=== PATIENT | female | born 1980 | race Hispanic/Latino ===

== ENCOUNTER 2017-06-29 07:44 | Inpatient (IN) | payer OTHER ==
[2017-06-29] MEDS ORDERED: Lactated Ringer's 1,000 ML IV ONE (07:45)
[2017-06-29 07:48] VITALS: BMI 36.6
[2017-06-29] MEDS: Lactated Ringer's 1,000 ML IV SCH ×2 (08:00→14:41)
[2017-06-29 08:29] VITALS: O2SAT 100
[2017-06-29 09:29] LABS: BASO % 0.3 % (0.0-2.0); EOS # 0.1 K/uL (0.0-0.7); EOS % 1.3 % (0.0-4.0); HEMATOCRIT 33.7 % (34.0-47.0); LYMPH # 2.2 K/uL (1.0-4.3); LYMPH % 32.5 % (20.0-40.0); MEAN CELL VOLUME 88.3 fl (81.0-99.0); MEAN CORPUSCULAR HEMOGLOBIN 29.3 pg (27.0-31.0); MEAN CORPUSCULAR HGB CONC 33.2 g/dL (33.0-37.0); MEAN PLATELET VOLUME 10.7 fl (7.2-11.7); MONO # 0.5 K/uL (0.0-0.8); MONO % 7.8 % (0.0-10.0); NEUT % 58.1 % (50.0-75.0); NRBC % 0.1 % (0.0-0.0); RED CELL DISTRIBUTION WIDTH 13.9 % (11.5-14.5); WHITE BLOOD COUNT 6.8 K/uL (4.8-10.8)
[2017-06-29] MEDS ORDERED: cefOXitin 2 GM in Sodium Chloride 0.9% 100 ML IVPB ONE (11:11)
[2017-06-29] MEDS ORDERED: Oxytocin 30 units/LR 500ML 30 U/500 ML BAG IV ONE ×2 (12:58→13:39)
[2017-06-29] MEDS ORDERED: Morphine 5 mg/10 ml preservative-free Inj(Duramorph) ONE (13:01)
[2017-06-29] MEDS ORDERED: ePHEDrine 50 mg/ml Inj ONE (13:01)
[2017-06-29] MEDS ORDERED: Oxycodone/Acetaminophen 5/325 mg Tab PO PRN ×3 (14:31→16:35)
[2017-06-29] MEDS ORDERED: Bisacodyl 5mg EC Tab PO PRN ×2 (14:31→16:35)
--- NOTE | 2017-06-29 14:31 | OBADHP ---
Datetime: 06/29/2017 14:19 IP Adm Impression Other: patient request due fact that she will transfer hiv-2 to baby Admit Comment, IP Provider: iupat 38+ weeks iugr multiparity patient anxiety of transferring hsv-2 t o baby Pelvic Type - PN: Adequate Extremities - PN: Normal Abdomen - PN: Normal Back - PN: Normal Breast - PN: Normal Lungs - PN: Normal Heart - PN: Normal Thyroid - PN: Normal Neurologic - PN: Normal HEENT - PN: Normal General - PN: Normal Presentation-Admit: Vertex FHR - Baseline A Provider: 120 Gestation - Est Wks by US: 38+ IP Chief Complaint: Uterine contractions NICHD Variability Prov Fetus A: Moderate 6-25bpm NICHD Accel Fetus A IP Provider: 10X10 FHR Category Provider Fetus A: Category I NICHD Decel Fetus A IP Provider: None Genitourinary Exam: Normal DTRs - PN: Normal EGA AdmitDate IP: 38.3 IP Adm Impression: Term, intrauterine ; No Active Labor IP Admit Plan: Admit to unit; Initiate labor induction protocol
--- NOTE | 2017-06-29 14:32 | OBDS ---
DELIVERY PERSONNEL Delivery Doctor: Anurag Coleman MD Research Assistant: Aspen Bradshaw RN Anesthesiologist: Carmelo Francis MD MATERNAL INFORMATION Delivery Anesthesia: Spinal Medications in Delivery: 20 units pitocin in 1000 ml lr Estimated Blood Loss (ml): 800ml Maternal Complications: None Provider Comments: delivery of live baby boy 9/9 clear fluid cord with 3 vessels pklacenta int ac t tubes and ovaries LABOR SUMMARY EDC: 07/10/2017 00:00 No. 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 Secondary Indication: N/A CSection Urgency: Non Elective CSection Incidence: Primary Labor: No Labor Elective: Nonelective CSection Incision: Lower Uterine Transverse Sterilization Procedure: [place] BABY A INFORMATION Delivery Date/Time: 06/29/2017 13:39 Method of Delivery: Born in Route : No : N/A Forceps: N/A Vacuum Extraction: N/A Shoulder Dystocia : No SHOULDER DYSTOCIA BABY A Delivery Date/Time: 06/29/2017 13:39 PRESENTATION/POSITION BABY A Presentation: Cephalic Cephalic Presentation: Vertex Vertex Position: Left Occipital Anterior Breech Presentation: N/A PLACENTA INFORMATION BABY A Placenta Delivery Time : 06/29/2017 13:40 Placenta Method of Delivery: Manual Removal Placenta Status: Delivered SCORES BABY A Heart Rate 1 min: >100 bpm Resp Effort 1 min: Good Cry Reflex Irritability 1 min: Cough or Sneeze or Pulls Away Muscle Tone 1 min: Active Motion Color 1 min: Body [place], Extremities Blue SCORE 1 MIN: 9 Heart Rate 5 min: >100 bpm Resp Effort 5 min: Good Cry Reflex Irritability 5 min: Cough or Sneeze or Pulls Away Muscle Tone 5 min: Active Motion Color 5 min: Body [place], Extremities Blue SCORE 5 MIN: 9 INFANT INFORMATION BABY A Gestational Age at Delivery: 38.3 Gestational Status: Term Outcome : Liveborn Condition : Stable Sex: Male IDENTIFICATION/MEDS BABY A ID Band Number: [id number] ID Band Location: Left Leg; Left Arm WEIGHT/LENGTH BABY A Infant Birthweight (gms): 3650 Weight (lb): 8 Infant Weight (oz): 1 CORD INFORMATION BABY A No. Cord Vessels: 3 Nuchal Cord : N/A Cord Blood Taken: Yes Suction: Mouth; Nose ASSESSMENT BABY A Complications: None Physical Findings at Delivery: Within Normal Limits Respirations: Appears Normal De Icer Kit Assembler/ALS Called : No Infant Care By: DR Rhodes Transferred To: [facility]
[2017-06-29] MEDS ORDERED: DiphenhydrAMINE 50 mg/ml Inj IVP PRN ×2 (15:07→16:35)
[2017-06-30] MEDS: Lactated Ringer's 1,000 ML IV SCH ×2 (00:16→08:31)
[2017-06-30 08:51] LABS: BASO % 0.1 % (0.0-2.0); EOS # 0.1 K/uL (0.0-0.7); EOS % 0.6 % (0.0-4.0); HEMATOCRIT 34.8 % (34.0-47.0); LYMPH # 1.6 K/uL (1.0-4.3); LYMPH % 16.5 % (20.0-40.0); MEAN CORPUSCULAR HEMOGLOBIN 29.6 pg (27.0-31.0); MEAN CORPUSCULAR HGB CONC 33.3 g/dL (33.0-37.0); MONO # 1.1 K/uL (0.0-0.8); NEUT % 71.8 % (50.0-75.0); NRBC % 0.1 % (0.0-0.0); RED CELL DISTRIBUTION WIDTH 14.1 % (11.5-14.5); WHITE BLOOD COUNT 9.8 K/uL (4.8-10.8)
--- NOTE | 2017-06-30 12:05 | OBPPN ---
Datetime: 06/30/2017 11:59 PP Pain Prov: Within normal limits PP Nausea Prov: Denies PP Flatus Prov: Yes PP BM Prov: No PP Breasts Prov: Normal PP Heart Prov: Normal PP Lungs Prov: Normal PP Abdomen/Uterus Prov: Normal PP Lochia Prov: Normal PP Vulva/Perineum Prov: Normal PP CVA Tenderness Prov: Normal PP Extremities Prov: Normal PP C/S Incision Prov: Normal PP Progress Prov: Normal PP Impression Prov: Normal progression PP Plan Prov: Continue present management PP Progress Note Prov: stable pod1 continue present care dc schwab oob with assistance advance diet a s tolerated dc dressing IP PP Procedures: None Vital Signs Provider PP: Reviewed; Within Normal Limits
[2017-06-30] MEDS: Oxycodone/Acetaminophen 5/325 mg Tab PO PRN ×2 (15:11→21:49)
[2017-07-01] MEDS: Oxycodone/Acetaminophen 5/325 mg Tab PO PRN ×4 (06:43→22:00)
--- NOTE | 2017-07-01 12:03 | OBPPN ---
Datetime: 07/01/2017 11:59 PP Pain Prov: Within normal limits PP Pain Prov comment: No SOB, chest pains or leg pains PP Nausea Prov: Denies PP Flatus Prov: Yes PP BM Prov: No PP Breasts Prov: Normal PP Lungs Prov: Normal PP Abdomen/Uterus Prov: Abnormal PP Lochia Prov: Normal PP Vulva/Perineum Prov: Normal PP CVA Tenderness Prov: Normal PP Extremities Prov: Normal PP C/S Incision Prov: Normal PP Progress Prov: Not Applicable PP Comments Phys Exam Prov: Abd soft ND, fundus firm below the umb. Incision clean and dry no suppt or discharge. Ext no calf tenderness PP Impression Prov: Normal progression PP Plan Prov: Continue present management PP Progress Note Prov: will repeat CBC and jasso;ual plattelet count Start Dulcolax this pm OOB and a mbulation Vital Signs Provider PP: Reviewed
[2017-07-01 13:24] LABS: HEMATOCRIT 30.3 % (34.0-47.0); MEAN CELL VOLUME 88.6 fl (81.0-99.0); MEAN CORPUSCULAR HEMOGLOBIN 29.2 pg (27.0-31.0); RED CELL DISTRIBUTION WIDTH 14.1 % (11.5-14.5); WHITE BLOOD COUNT 9.4 K/uL (4.8-10.8)
[2017-07-02] MEDS ORDERED: Magnesium Hydroxide Susp 30 ml UD PO ONE (07:59)
--- NOTE | 2017-07-02 08:17 | OBPPN ---
Datetime: 07/02/2017 08:15 PP Pain Prov: Within normal limits PP Nausea Prov: Denies PP Flatus Prov: Yes PP BM Prov: No PP Breasts Prov: Normal PP Heart Prov: Normal PP Lungs Prov: Normal PP Abdomen/Uterus Prov: Normal PP Lochia Prov: Normal PP Vulva/Perineum Prov: Normal PP CVA Tenderness Prov: Normal PP Extremities Prov: Normal PP C/S Incision Prov: Normal PP Progress Prov: Normal PP Impression Prov: Normal progression PP Plan Prov: Continue present management PP Progress Note Prov: stable pod 3 continue present care IP PP Procedures: None Vital Signs Provider PP: Reviewed; Within Normal Limits
--- NOTE | 2017-07-02 08:28 | OBDCSUM ---
Datetime: 07/02/2017 08:17 Discharged to, Provider: Home Follow up at, Provider: Disch Instr Activity: Bedrest; May be up to bathroom; May be up for meals; May Shower Disch Instr Diet: Regular Discharge Instructions, Provider: Routine instructions given Discharge Diagnosis, Provider: Term Delivered Discharge Time: 07/02/2017 08:18 Follow up in weeks, Provider: 1week Disch Referrals: None Disch Activity Restrictions: No exercising; No lifting; No driving; Minimize walking; Minimize stair -climbing; No sexual activity; Nothing in vagina - [place], tampons, douche Discharge Comment, Provider: darrion home rto 1week call office if any problems Contraception after Delivery: Tubal Ligation
[2017-07-03 01:42] VITALS: BP 124/65; PULSE 81; RESP 20; TEMP 98.3
--- NOTE | 2017-07-04 20:37 | OP ---
PROCEDURE DATE: 06/29/2017 PREOPERATIVE DIAGNOSES: Term , oligohydramnios. PREOPERATIVE DIAGNOSES: Term , oligohydramnios. INDICATION: The patient requested to have a primary because of the fact that she is afraid she will pass her herpes onto her baby, also multiparity. SURGEON: Dr. Coleman. CAST IRON DIPPER: Dr. Lynch. TYPE OF ANESTHESIA: Spinal. ANESTHESIA ADMINISTERED BY: Dr. Macias. DESCRIPTION OF PROCEDURE: With the patient in the supine position under spinal, the patient was prepped and draped in the usual sterile manner. A Pfannenstiel incision was made and taken down to the fascia in layers. Fascia incised and extended bilaterally. Dr. Lynch doing his half and I am doing my half. Dr. Lynch assisted in the preparation of the surgery. After fascia was opened up of peritoneum, the fascia was from the muscle by sharp dissection and blunt dissection, after which the peritoneum was grasped, incised and extended vertically. Upon entering the abdominopelvic cavity, pericolic gutters were packed away from the operative koch bilaterally. The bladder flap was established, after which a low transverse incision was made in the uterus, extending bilaterally and curving upwards. The baby was removed without any complication and given to spinning frame fixer who resuscitated. After this was done, the placenta was removed intact. The uterus was exteriorized and clean. The uterus was closed in 2 layers with 1 Vicryl running interlocking stitch, maintaining hemostasis. After this was done, the tubes were ligated bilaterally in a modified Kami fashion, maintaining hemostasis. The pelvic cavity was irrigated until clean after wet laps were removed from the paracolic gutters. The uterus was then repositioned. The peritoneum was grasped and closed with 1 Vicryl. Muscles were re-approximated with 1 Vicryl. The fascia was closed with 1 Vicryl running interlocking stitch starting at each end and finished in the midline. Dr. Lynch doing his half and I am doing my half, maintaining hemostasis. The subcutaneous layer was then closed with 2-0 plain. After this was done, the skin was closed with faizan. The patient tolerated the procedure well and was in satisfactory condition on her way to recovery room. The blood loss was 800 mL. John MD [facility] # [id number]
== END 2017-07-02 15:00 | disposition home or self-care (01) | DRG 371 ==
LOC: H.EROB2 07:44 → H.L&D 07:46 → H.EROB2 07:47 → H.L&D 07:48 → H.OB/GYN 17:15
PROVIDERS: ADMIT Specialist; ATTEND Specialist
PROC: 10D00Z1 Extraction of Products of Conception, Low, Open Approach (ICD-10-PCS; principal; 2017-06-29)
PROC: 0U570ZZ Destruction of Bilateral Fallopian Tubes, Open Approach (ICD-10-PCS; 2017-06-29)
DX: O41.03X0 Oligohydramnios, third trimester, not applicable or unspecified (principal); O36.5930 Maternal care for other known or suspected poor fetal growth, third trimester, not applicable or unspecified; Z37.0 Single live birth; Z3A.38 38 weeks gestation of pregnancy; Z30.2 Encounter for sterilization; O09.523 Supervision of elderly multigravida, third trimester; Z86.19 Personal history of other infectious and parasitic diseases